=== PATIENT | male | born 1990 | race African-American/Black ===

== ENCOUNTER 2016-07-30 08:44 | Emergency (ER) | payer SELFPAY ==
[~2016-07-30] VITALS: Ht 180.3 cm; Wt 65.0 kg
[~2016-07-30 08:44] MED LIST: AMOXICILLIN500 MG PO; BACTRIM DS1 TAB PO; NAPROSYN500 MG PO; NO MEDS; PRILOSEC40 MG PO; ROBITUSS12 OR; TRIAMCINOLON0.13 EX; ULTRAM50 M1 PO; VENTOLIN HFA IN; ZPAK OR
[2016-07-30] MEDS ORDERED: MOTRIN800 MG PO (09:22)
[2016-07-30 09:38] VITALS: BP 143/80
== END 2016-07-30 09:38 | disposition home or self-care (01) | DRG 605 ==
LOC: ED 08:44
DX: S70.12XA Contusion of left thigh, initial encounter (principal); F17.210 Nicotine dependence, cigarettes, uncomplicated; J45.909 Unspecified asthma, uncomplicated; V68.5XXA Driver of heavy transport vehicle injured in noncollision transport accident in traffic accident, initial encounter

== ENCOUNTER 2017-09-01 09:21 | Emergency (ER) | payer SELFPAY ==
[~2017-09-01] VITALS: Ht 180.3 cm; Wt 58.2 kg
[~2017-09-01 09:21] MED LIST changes: +MOTRIN800 MG PO
[2017-09-01] MEDS ORDERED: DELTASONE20 MG PO (10:06)
[2017-09-01] MEDS ORDERED: TORADOL PO (10:06)
[2017-09-01] MEDS ORDERED: FLEXERIL PO (10:06)
[2017-09-01 10:40] VITALS: BP 109/78
== END 2017-09-01 10:41 | disposition home or self-care (01) | DRG 563 ==
LOC: ED 09:21
DX: S46.812A Strain of other muscles, fascia and tendons at shoulder and upper arm level, left arm, initial encounter (principal); X50.0XXA Overexertion from strenuous movement or load, initial encounter

== ENCOUNTER 2017-11-03 10:36 | Emergency (ER) | payer SELFPAY ==
[~2017-11-03 10:36] MED LIST changes: +DELTASONE20 MG PO; +FLEXERIL PO; +TORADOL PO
== END 2017-11-03 10:55 | disposition left against medical advice (07) | DRG 951 ==
LOC: ED 10:36 → LWOBS 10:54 → ED 10:54 → LWOBS 10:55
DX: Z91.19 Patient's noncompliance with other medical treatment and regimen (principal)

== ENCOUNTER 2017-12-29 09:01 | Emergency (ER) | payer OTHER ==
[~2017-12-29] VITALS: Ht 180.3 cm; Wt 62.0 kg
[2017-12-29 09:33] LABS: MEAN CELL VOLUME 88.5 fL CALC (80.0-100.0); MEAN CORPUSCULAR HGB 28.9 pG CALC (26.0-32.0); MEAN CORPUSCULAR HGB CONC 32.6 g/L CALC (32.0-36.0); NEUT# 1.87 thou/uL (1.82-7.42); RED BLOOD COUNT 4.85 mill/uL (4.70-6.10)
[2017-12-29 09:35] LABS: HEMATOCRIT 42.9 % (39.0-50.0)
[2017-12-29 09:51] LABS: ANION GAP 15 (6-22 (CALC)); BUN 13 mg/dL (9-20); BUN/CREATININE RATIO 12 (12-20 (CALC)); CARBON DIOXIDE 26 mmol/l (22-30); CHLORIDE 106 mmol/l (95-108); CREATININE 1.1 mg/dL (0.7-1.3); GFR > 60 ML/MIN (>=60 (CALC)); GFR FOR AFR.AMER. > 60 ML/MIN (>=60 (CALC)); POTASSIUM 4.2 mmol/l (3.5-5.1); SODIUM 143 mmol/l (137-146)
[2017-12-29 10:24] VITALS: BP 116/80
== END 2017-12-29 10:35 | disposition home or self-care (01) | DRG 103 ==
LOC: ED 09:01
PROVIDERS: Family Medicine
DX: F07.81 Postconcussional syndrome (principal)

== ENCOUNTER 2019-10-24 14:54 | Emergency (ER) | payer SELFPAY ==
[~2019-10-24] VITALS: Ht 180.3 cm; Wt 68.1 kg
[2019-10-24 16:54] LABS: ALBUMIN 4.4 g/dL (3.2-5.0); ALKALINE PHOSPHATASE 63 u/l (38-126); ANION GAP 10 (6-22 (CALC)); BUN 12 mg/dL (9-20); BUN/CREATININE RATIO 10 (12-20 (CALC)); CARBON DIOXIDE 28 mmol/l (22-30); CHLORIDE 104 mmol/l (95-108); CREATININE 1.2 mg/dL (0.7-1.3); GFR > 60 ML/MIN (>=60 (CALC)); GFR FOR AFR.AMER. > 60 ML/MIN (>=60 (CALC)); POTASSIUM 4.4 mmol/l (3.5-5.1); SGOT/AST 34 u/l (17-59); SODIUM 137 mmol/l (137-146)
[2019-10-24 16:58] LABS: BILIRUBIN, TOTAL 0.4 mg/dL (0.0-1.4)
[2019-10-24 17:18] VITALS: BP 136/86
--- NOTE | 2019-10-26 09:38 | NUR ---
Notified patient of positive Covid results. Patient c/o occasional SOB, patient denies fever. Advised patient to quarantine until contacted by [facility] with further instructions. Advised patient to return to the ED with any increeased SOB, other breathing difficulties or other urgent needs. Patient verbalized understanding.
== END 2019-10-24 17:18 | disposition home or self-care (01) | DRG 179 ==
LOC: ED 14:54
PROVIDERS: Emergency Medicine
DX: U07.1 COVID-19 (principal); F17.290 Nicotine dependence, other tobacco product, uncomplicated

== ENCOUNTER 2020-09-23 00:49 | Emergency (ER) | payer SELFPAY ==
[~2020-09-23] VITALS: Ht 180.3 cm; Wt 68.0 kg
[2020-09-23] MEDS ORDERED: AMOXICILLIN500 M2 PO (01:16)
[2020-09-23] MEDS ORDERED: VOLTAREN75 MG PO (01:16)
[2020-09-23 01:21] VITALS: BP 119/69
== END 2020-09-23 01:30 | disposition home or self-care (01) | DRG 159 ==
LOC: ED 00:49
DX: K02.9 Dental caries, unspecified (principal); J45.909 Unspecified asthma, uncomplicated; F17.210 Nicotine dependence, cigarettes, uncomplicated

== ENCOUNTER 2021-03-25 11:27 | Emergency (ER) | payer SELFPAY ==
[~2021-03-25] VITALS: Ht 180.3 cm; Wt 65.9 kg
[~2021-03-25 11:27] MED LIST changes: +AMOXICILLIN500 M2 PO; +VOLTAREN75 MG PO
[2021-03-25 11:58] LABS: URINE BILIRUBIN - DIPSTICK NEGATIVE (NEGATIVE); URINE BLOOD DIPSTICK NEGATIVE (NEGATIVE); URINE COLOR YELLOW; URINE GLUCOSE - DIPSTICK NEGATIVE (NEGATIVE); URINE KETONE NEGATIVE (NEGATIVE); URINE LEUK ESTERASE NEGATIVE (NEGATIVE); URINE PH 6.5 (4.5-8.0); URINE PROTEIN - DIPSTICK NEGATIVE (NEG-TRACE); URINE SPECIFIC GRAVITY 1.025; URINE UROBILINOGEN - DIPSTICK 0.2 E.U./dL (0.2)
[2021-03-25 12:48] LABS: URINE NITRITE - DIPSTICK NEGATIVE (Negative)
[2021-03-25] MEDS ORDERED: FLEXERIL5 M1 PO (12:52)
[2021-03-25] MEDS ORDERED: MOTRIN400 MG/TAB PO (12:52)
[2021-03-25 13:16] VITALS: BP 112/63
== END 2021-03-25 13:16 | disposition home or self-care (01) | DRG 552 ==
LOC: ED 11:27
PROVIDERS: Family Medicine
DX: M54.50 Low back pain, unspecified (principal); J45.909 Unspecified asthma, uncomplicated; F17.210 Nicotine dependence, cigarettes, uncomplicated

== ENCOUNTER 2021-06-19 06:27 | Emergency (ER) | payer SELFPAY ==
[~2021-06-19] VITALS: Ht 180.3 cm; Wt 65.0 kg
[~2021-06-19 06:27] MED LIST changes: +FLEXERIL5 M1 PO; +MOTRIN400 MG/TAB PO
[2021-06-19 06:34] VITALS: BP 108/72
[2021-06-19 07:27] VITALS: BP 107/74
[2021-06-19] MEDS ORDERED: VOLTAREN1%GEL TOP (07:33)
[2021-06-19 07:37] VITALS: BP 107/74
== END 2021-06-19 07:49 | disposition home or self-care (01) | DRG 556 ==
LOC: ED 06:27
DX: M25.561 Pain in right knee (principal); J45.909 Unspecified asthma, uncomplicated; F17.200 Nicotine dependence, unspecified, uncomplicated

== ENCOUNTER 2021-09-18 06:31 | Emergency (ER) | payer SELFPAY ==
[2021-09-18] VITALS (9 sets, daily range): BP systolic 115–147; BP diastolic 73–91
[~2021-09-18] VITALS: Ht 180.3 cm; Wt 63.6 kg
[~2021-09-18 06:31] MED LIST changes: +VOLTAREN1%GEL TOP
[2021-09-18] MEDS ORDERED: AMOXICILLIN500 MG PO (06:46)
[2021-09-18] MEDS ORDERED: VOLTAREN75 MG PO (06:46)
== END 2021-09-18 07:30 | disposition home or self-care (01) | DRG 159 ==
LOC: ED 06:31
DX: K02.9 Dental caries, unspecified (principal); J45.909 Unspecified asthma, uncomplicated; F17.200 Nicotine dependence, unspecified, uncomplicated

== ENCOUNTER 2022-03-18 06:10 | Emergency (ER) | payer SELFPAY ==
[~2022-03-18] VITALS: Ht 180.3 cm; Wt 68.5 kg
[2022-03-18] MEDS ORDERED: EC-NAPROXEN500 MG PO (06:53)
[2022-03-18] MEDS ORDERED: PENICILLN VK500 MG PO (06:53)
[2022-03-18 07:05] VITALS: BP 131/80
== END 2022-03-18 07:20 | disposition home or self-care (01) | DRG 159 ==
LOC: ED 06:10
DX: K02.9 Dental caries, unspecified (principal)

== ENCOUNTER 2022-11-21 22:36 | Emergency (ER) | payer SELFPAY ==
[~2022-11-21 22:36] MED LIST changes: +EC-NAPROXEN500 MG PO; +PENICILLN VK500 MG PO
== END 2022-11-21 23:10 | disposition left against medical advice (07) | DRG 179 ==
LOC: ED 22:36 → AMA 23:06 → LWOBS 23:06 → ED 23:06 → LWOBS 23:10
DX: U07.1 COVID-19 (principal); R05.9 Cough, unspecified; J45.909 Unspecified asthma, uncomplicated; Z53.29 Procedure and treatment not carried out because of patient's decision for other reasons

== ENCOUNTER 2023-06-02 06:18 | Emergency (ER) | payer SELFPAY ==
[~2023-06-02] VITALS: Ht 180.3 cm; Wt 68.0 kg
[2023-06-02 06:29] VITALS: BP 146/90
[2023-06-02 06:55] VITALS: BP 146/90
== END 2023-06-02 07:04 | disposition home or self-care (01) | DRG 607 ==
LOC: ED 06:18
DX: L84 Corns and callosities (principal)